=== PATIENT | female | born 1990 | race Caucasian/White ===

== ENCOUNTER 2024-09-02 06:20 | Emergency (ER) | payer OTHER ==
[~2024-09-02] VITALS: Ht 157.5 cm; Wt 82.4 kg
[2024-09-02 06:46] VITALS: TEMP 98.1
[2024-09-02 09:55] VITALS: BP 134/78; PULSE 81; RESP 18; O2SAT 99
[2024-09-02] MEDS: KETOROLAC 30MG/ML VIAL IM STA (09:59)
[2024-09-02] MEDS: LORAZEPAM 1MG TABLET PO ONE (10:00)
[2024-09-02] MEDS: DEXAMETHASONE 10 MG/ML VIAL IM ONE (10:00)
[2024-09-02 10:29] LABS: CLARITY URINE CLEAR (CLEAR); COLOR URINE YELLOW (YELLOW); GLUCOSE URINE NEGATIVE (NEGATIVE); KETONES URINE NEGATIVE (NEGATIVE); LEUKOCYTE ESTERASE URINE NEGATIVE (NEGATIVE); NITRITE URINE NEGATIVE (NEGATIVE); OCCULT BLOOD URINE NEGATIVE (NEGATIVE); PROTEIN URINE NEGATIVE (NEGATIVE); SPECIFIC GRAVITY URINE 1.016 (1.005-1.030); UROBILINOGEN URINE 0.2 E.U./dL (0.2-1.0)
[2024-09-02] MEDS ORDERED: CYCL10TA21 MT (10:32)
[2024-09-02] MEDS ORDERED: IBUP-2029 MT (10:32)
== END 2024-09-02 10:53 | disposition home or self-care (01) ==
LOC: ER 06:20
DX: M54.50 Low back pain, unspecified (principal); Z68.33 Body mass index [BMI] 33.0-33.9, adult
CPT/HCPCS: 81003; 81025; 96372; 99283; J1885; Z7610